=== PATIENT | male | born 1965 | race Caucasian/White ===

== ENCOUNTER 2020-02-24 20:55 | Emergency (ER) | payer BC, OTHER ==
[~2020-02-24] VITALS: Ht 170.1 cm; Wt 81.6 kg
[2020-02-24 21:24] LABS: HEMOGLOBIN 14.7 G/DL (13.3-17.7); MEAN CORPUSCULAR HEMOGLOBIN 30 PG (25-34); WHITE BLOOD COUNT 4.2 10^3/uL (4.3-11.0)
[2020-02-24 21:25] LABS: BASOPHILS % (AUTO) 0 % (0-10); EOSINOPHILS % (AUTO) 0 % (0-10); HEMATOCRIT 43 % (40-54); LYMPHOCYTES # (AUTO) 1.1 X 10^3 (1.0-4.0); LYMPHOCYTES % (AUTO) 26 % (12-44); MEAN CORPUSCULAR HGB CONC 34 G/DL (32-36); MEAN CORPUSCULAR VOLUME 87 FL (80-99); MEAN PLATELET VOLUME 8.8 FL (7.4-10.4); MONOCYTES # (AUTO) 0.4 X 10^3 (0.0-1.0); MONOCYTES % (AUTO) 10 % (0-12); NEUTROPHILS # (AUTO) 2.7 X 10^3 (1.8-7.8); NEUTROPHILS % (AUTO) 64 % (42-75); PLATELET COUNT 224 10^3/uL (130-400)
[2020-02-24] MEDS ORDERED: NS IV 1000 ML 1,000 ML IV SCH (21:30)
[2020-02-24 21:40] LABS: EOSINOPHILS % (MANUAL) 2 %; LYMPHOCYTES % (MANUAL) 21 %; MONOCYTES % (MANUAL) 5 %; NEUTROPHILS % (MANUAL) 72 %
[2020-02-24 21:48] LABS: ALANINE AMINOTRANSFERASE 21 U/L (0-55); ALBUMIN 4.1 GM/DL (3.2-4.5); ALKALINE PHOSPHATASE 62 U/L (40-136); BILIRUBIN,TOTAL 0.5 MG/DL (0.1-1.0); BUN/CREATININE RATIO 17; CALCIUM 8.9 MG/DL (8.5-10.1); CARBON DIOXIDE 22 MMOL/L (21-32); CHLORIDE 104 MMOL/L (98-107); CREATININE SERUM 1.01 MG/DL (0.60-1.30); GFR ESTIMATED > 60; GLUCOSE 129 MG/DL (70-105); POTASSIUM 3.9 MMOL/L (3.6-5.0); SODIUM 138 MMOL/L (135-145); TOTAL PROTEIN 6.8 GM/DL (6.4-8.2)
--- NOTE | 2020-02-24 22:01 | Diagnostic Imaging Report ---
INDICATION: Syncope and shortness of breath, history of Covid infection. EXAMINATION: Frontal chest was obtained at 9:36 p.m. FINDINGS: Heart and mediastinal silhouette are normal. The lungs show no focal infiltrate. There is no pneumothorax or pleural fluid. IMPRESSION: Negative chest. Dictated by: Dictated on workstation # [id number]
[2020-02-24] MEDS ORDERED: DOXYCYCLINE 100 MG (VIBRAMYCIN) TABLET PO STA (22:15)
[2020-02-24] MEDS ORDERED: morphine INJ 10 MG/ML 1ML (SYR OR VIAL) IVP STA (22:15)
[2020-02-24] MEDS ORDERED: ONDANSETRON 4 MG/2 ML (SDV) Z0FRAN IVP ONE (22:15)
[2020-02-24] MEDS ORDERED: PRD20T PO (22:20)
[2020-02-24] MEDS ORDERED: ACHD5005 PO (22:20)
[2020-02-24] MEDS ORDERED: RT-ALBUINH IH (22:20)
[2020-02-24] MEDS ORDERED: DOXY100C2 PO (22:20)
--- NOTE | 2020-02-24 22:27 | ED Syncope ---
General Chief Complaint: Dizziness/Syncope Stated Complaint: SYNCOPAL EPISODE Nursing Triage Note: pt in per [facility] for syncopal episode at home. Denies SOB or chest pain. received positive results yesterday for COVID. states has had a fever and lack of appetite. Source of Information: Patient History of Present Illness Date Seen by Provider: Feb 24, 2020 Time Seen by Provider: 21:20 Initial Comments Patient is a 54-year-old with three-day history of cough, body aches chills, fever of 102.1 and positive COVID test 3 days ago. Presents with syncopal episode. Patient reports having rigors sweats and fever and felt faint. He had a brief syncopal episode and vomited afterwards. He denies headache, chest pain pa lpitations or shortness of breath. States he's been alternating ibuprofen and Tylenol and monitoring his oxygen level which is remained greater than 94%. He isn't decreased oral intake. Denies history of CAD arrhythmia DVT or PE. No leg pain or swelling. Timing/Prior Episodes: No Prior History Symptoms Prior to Episode: Other Loss of Consciousness: Brief (Seconds) Current Symptoms: Back to Normal, Dizziness Allergies and Home Medications Allergies Coded Allergies: No Known Drug Allergies (Unverified , 02/24/20) Home Medications Albuterol Sulfate 1 Puff Puff, 2 PUFF IH Q4H 1 PUFF = 90 MCG Prescribed by: LEN KRAUSE on 02/24/202219 Doxycycline Hyclate 100 Mg Capsule, 100 MG PO BID Prescribed by: LEN KRAUSE on 02/24/202219 Hydrocodone/Acetaminophen 1 Each Tablet, 1 EACH PO Q6H Prescribed by: LEN KRAUSE on 02/24/202219 Prednisone 20 Mg Tab, 60 MG PO DAILY Prescribed by: LEN KRAUSE on 02/24/202219 Patient Home Medication List Home Medication List Reviewed: Yes Review of Systems Constitutional: see HPI EENTM: see HPI Respiratory: see HPI Cardiovascular: see HPI Gastrointestinal: see HPI Genitourinary: see HPI Musculoskeletal: see HPI Skin: see HPI Psychiatric/Neurological: See HPI Past [id number] Hx Past Med/Social Hx: Reviewed Nursing Past Med/Soc Hx Patient Social History Alcohol Use: Denies Use Recreational Drug Use: No Recent Foreign Travel: No Contact w/Someone Who Travel: No Recent Infectious Disease Expo: Yes Recent Hopitalizations: No Physical Abuse: No Sexual Abuse: No Seasonal Allergies Seasonal Allergies: No Past Medical History Surgeries: Yes Respiratory: No Cardiac: No Neurological: No Genitourinary: No Gastrointestinal: No Musculoskeletal: No Endocrine: No HEENT: No Cancer: No Psychosocial: No Integumentary: No Blood Disorders: No Physical Exam Vital Signs Vital Signs - First Documented 02/24/20 21:10 Temp 36.6 Pulse 73 Resp 14 B/P (MAP) 117/77 (90) Pulse Ox 95 O2 Delivery Room Air Capillary Refill : Less Than 3 Seconds Height, Weight, BMI Height: '" Weight: lbs. oz. kg; 28.00 BMI Method: General Appearance: Other (conjunctivae injected) HEENT: Normal ENT Inspection, Pharynx Normal Neck: Normal Inspection, Non Tender, Supple Cardiovascular: Regular Rate, Rhythm (daily ill-appearing) Respiratory: Chest Non Tender, Lungs Clear Gastrointestinal: Non Tender, Soft Back: No CVA Tenderness Extremities: No Calf Tenderness Neurologic/Psychiatric: Alert, Oriented x3 Cranial Nerves: PERRL Progress/Results/Core Measures Results/Orders Lab Results Laboratory Tests Test 02/24/20 21:10 Range/Units White Blood Count 4.2 L 4.3-11.0 10^3/uL Red Blood Count 4.94 4.35-5.85 10^6/uL Hemoglobin 14.7 13.3-17.7 G/DL Hematocrit 43 40-54 % Mean Corpuscular Volume 87 80-99 FL Mean Corpuscular Hemoglobin 30 25-34 PG Mean Corpuscular Hemoglobin Concent 34 32-36 G/DL Red Cell Distribution Width 12.2 10.0-14.5 % Platelet Count 224 130-400 10^3/uL Mean Platelet Volume 8.8 7.4-10.4 FL Immature Granulocyte % (Auto) 0 % Neutrophils (%) (Auto) 64 42-75 % Lymphocytes (%) (Auto) 26 12-44 % Monocytes (%) (Auto) 10 0-12 % Eosinophils (%) (Auto) 0 0-10 % Basophils (%) (Auto) 0 0-10 % Neutrophils # (Auto) 2.7 1.8-7.8 X 10^3 Lymphocytes # (Auto) 1.1 1.0-4.0 X 10^3 Monocytes # (Auto) 0.4 0.0-1.0 X 10^3 Eosinophils # (Auto) 0.0 0.0-0.3 10^3/uL Basophils # (Auto) 0.0 0.0-0.1 10^3/uL Immature Granulocyte # (Auto) 0.0 0.0-0.1 10^3/uL Neutrophils % (Manual) 72 % Lymphocytes % (Manual) 21 % Monocytes % (Manual) 5 % Eosinophils % (Manual) 2 % Sodium Level 138 135-145 MMOL/L Potassium Level 3.9 3.6-5.0 MMOL/L Chloride Level 104 98-107 MMOL/L Carbon Dioxide Level 22 21-32 MMOL/L Anion Gap 5-14 MMOL/L Blood Urea Nitrogen 17 7-18 MG/DL Creatinine 1.01 0.60-1.30 MG/DL Estimat Glomerular Filtration Rate > 60 BUN/Creatinine Ratio 17 Glucose Level 129 H 70-105 MG/DL Calcium Level 8.9 8.5-10.1 MG/DL Corrected Calcium 8.8 8.5-10.1 MG/DL Total Bilirubin 0.5 0.1-1.0 MG/DL Aspartate Amino Transf (AST/SGOT) 17 5-34 U/L Alanine Aminotransferase (ALT/SGPT) 21 0-55 U/L Alkaline Phosphatase 62 40-136 U/L Troponin I < 0.30 <0.30 NG/ML Total Protein 6.8 6.4-8.2 GM/DL Albumin 4.1 3.2-4.5 GM/DL My Orders Orders - LEN KRAUSE DO Cbc And Manual Diff (02/24/20 21:17) Comprehensive Metabolic Panel (02/24/20 21:17) Ekg Tracing (02/24/20 21:17) Troponin I Fs (02/24/20 21:17) Chest 1 View Ap/Pa Only (02/24/20 21:17) Ns Iv 1000 Ml (Sodium Chloride 0.9%) (02/24/20 21:30) Dexamethasone Injection (Decadron Inje (02/24/20 22:15) Morphine Injection (Morphine Injection (02/24/20 22:15) Ondansetron Injection (Zofran Injectio (02/24/20 22:15) Doxycycline Hyclate Tablet (Vibramycin T (02/24/20 22:15) Vital Signs/I&O 02/24/20 02/24/20 21:10 22:03 Temp 36.6 37.4 Pulse 73 73 Resp 14 14 B/P (MAP) 117/77 (90) 115/81 (92) Pulse Ox 95 95 O2 Delivery Room Air Room Air Blood Pressure Mean: 92 Departure Communication (Admissions) Patient acute was symptomatic from COVID. Vital signs stable in the emergency department. IV fluids, steroids, pain medication provided with symptomatic improvement. Lab, EKG and imaging consistent with known diagnosis of COVID. Recommend watchful waiting, continued monitoring and self quarantine.. Return precautions reviewed. Patient verbalizes understanding agreement discharge instructions prior to departure. Impression Primary Impression: Syncope Additional Impression: COVID-19 Disposition: HOME, SELF-CARE Condition: Stable Departure-Patient Inst. Referrals: MARCI WAGNER DO (PCP/Family) Primary Care Physician Patient Instructions: Coronavirus Disease 2019 (COVID-19) ED, Syncope (Fainting) (DC) Add. Discharge Instructions: Please take newly prescribed medications as directed and continue to monitor home oxygen levels. If symptoms worsen or if she levels fall below 90%, return to the emergency department immediately. Otherwise, continue self quarantine until 3 days after symptoms have resolved. All discharge instructions reviewed with patient and/or family. Voiced understanding. Scripts Doxycycline Hyclate (Doxycycline Hyclate) 100 Mg Capsule 100 MG PO BID, #20 CAP Prov: LEN KRAUSE DO 02/24/20 Albuterol Sulfate (PROAIR HFA) 1 Puff Puff 2 PUFF IH Q4H, #1 PUFF 1 PUFF = 90 MCG Prov: LEN KRAUSE DO 02/24/20 Hydrocodone/Acetaminophen (Hydrocodone-Acetamin 5-325 mg) 1 Each Tablet 1 EACH PO Q6H, #10 TAB Prov: LEN KRAUSE DO 02/24/20 Prednisone (Prednisone) 20 Mg Tab 60 MG PO DAILY, #18 TAB 0 Refills Prov: LEN KRAUSE DO 02/24/20 LEN KRAUSE DO Feb 24, 2020 22:27
[2020-02-24 22:57] VITALS: BP 126/80
== END 2020-02-24 22:55 | disposition home or self-care (01) ==
LOC: ER FS 21:00
DX: R55 Syncope and collapse (principal); U07.1 COVID-19; Z79.52 Long term (current) use of systemic steroids
CPT/HCPCS: 36415; 71045; 80053; 84484; 85007; 85027; 93005

== ENCOUNTER → 2020-03-04 | Outpatient (CLI) | payer BC ==
[~2020-03-04] MED LIST: ACHD5005 PO; DOXY100C2 PO; PRD20T PO; RT-ALBUINH IH
--- NOTE | 2020-03-04 18:52 | Diagnostic Imaging Report ---
INDICATION: Covid. COMPARISON: 02/24/2020 FINDINGS: The heart size is normal. There are patchy bilateral pulmonary infiltrates, left greater than right. There is no pleural effusion or pneumothorax. The mediastinum is unremarkable IMPRESSION: Patchy bilateral pulmonary infiltrates, left greater than right, otherwise unremarkable. This remains compatible with Covid pneumonia. Dictated by: Dictated on workstation # [id number]
== END ==
LOC: RAD FS 16:16
PROVIDERS: ATTEND Emergency Medicine
DX: U07.1 COVID-19 (principal); J12.81 Pneumonia due to SARS-associated coronavirus
CPT/HCPCS: 71046